=== PATIENT | female | born 1945 | race Caucasian/White ===

== ENCOUNTER 2017-08-08 09:13 | Outpatient (CLI) | payer MEDICARE, OTHER ==
--- NOTE | 2017-08-08 15:11 | CT ---
CT CHEST WITH IV CONTRAST: Date: 08/08/17 HISTORY: Pulmonary nodule follow-up. History of bladder cancer. COMPARISON: 05/17/17, 04/12/16. FINDINGS: The 7.0 mm noncalcified subpleural nodule in the inferior aspect of the right anterior upper lobe is stable. No new pulmonary nodules are seen. No mediastinal hilar or axillary mass or lymphadenopathy identified. No pleural or pericardial effus ions are seen. There are vascular calcifications without evidence of aneurysmal dilatation of the abdominal aorta. There are degenerative changes in the spine. The upper abdominal tomograms are unremarkable. IMPRESSION: Stable exam. POS: SIDNEY
== END 2017-08-08 09:14 | disposition home or self-care (01) ==
LOC: CT 09:13
PROVIDERS: ATTEND Family Medicine
DX: R91.1 Solitary pulmonary nodule (principal)
CPT/HCPCS: 71260

== ENCOUNTER 2017-08-08 10:45 | Emergency (ER) | payer MEDICARE, OTHER ==
[2017-08-08 11:21] LABS: #Basophils 0.1 thou/uL (0.0-0.2); #Eosinphils 0.6 thou/uL (0.0-0.7); #Lymphocytes 2.2 thou/uL (1.20-3.40); #Monocytes 0.4 thou/uL (0.11-0.59); %Basophils 0.7 % (0.0-1.0); %Lymphocytes 30.1 % (21.0-51.0); %Monocytes 5.1 % (0.0-10.0); Hematocrit 45.3 % (36.0-47.0); Mean Platelet Volume 7.4 fL (7.4-10.4); Red Blood Cell (RBC) Count 5.04 mill/uL (4.20-5.40); White Blood Cell (WBC) Count 7.2 thou/uL (4.8-10.8)
[2017-08-08 11:36] LABS: ALT (SGPT) 11 U/L (8-55); AST (SGOT) 14 U/L (5-34); Alkaline Phosphatase 82 U/L (40-150); Anion Gap 11 mmol/L (10-20); BUN (Urea Nitrogen) 12 mg/dL (9.8-20.1); Bilirubin, Total 0.6 mg/dL (0.2-1.2); Calc. Creatinine Clearance 0 mL/min (70-130); Calcium 9.7 mg/dL (7.8-10.44); Carbon Dioxide 26 mmol/L (23-31); Chloride 107 mmol/L (98-107); Estimated GFR-MDRD 72; Globulin 2.6 g/dL (2.4-3.5); Protein, Total 6.7 g/dL (6.0-8.3)
[2017-08-08 11:37] LABS: Bilirubin Negative (Negative); Blood, Urine Large (Negative); Glucose, Urine (Dipstick) Negative (Negative); Ketone, Urine Negative (Negative); Nitrite Positive (Negative); Protein, Urine (Dipstick) 30 mg/dL (Neg-Trace)
[2017-08-08 11:45] LABS: Bacteria/HPF 4+ HPF (None Seen); Hyaline Casts/LPF 0-3 HYALINE CAST LPF (0-3 Hyaline); RBC/HPF GREATER THAN 50-TNTC HPF (0-3); Squamous Epithelial 0-3 HPF (0-3)
== END 2017-08-08 13:09 | disposition home or self-care (01) ==
LOC: ERS 10:45
DX: N76.0 Acute vaginitis (principal); E78.5 Hyperlipidemia, unspecified; F17.210 Nicotine dependence, cigarettes, uncomplicated; Z85.3 Personal history of malignant neoplasm of breast; Z79.899 Other long term (current) drug therapy
CPT/HCPCS: 36415; 71260; 80053; 81003; 81015; 83690; 85025; 87077; 87086; 87186; 99284

== ENCOUNTER 2019-03-12 07:32 | Outpatient (CLI) | payer MEDICARE, OTHER ==
--- NOTE | 2019-03-12 08:42 | CT ---
CT chest noncontrast low-dose screening HISTORY: Tobacco abuse. Screening. COMPARISON: Multiple exams back to 04/12/2016. FINDINGS: Lungs remain somewhat hyperinflated. A noncalcified subpleural nodule at the anterior aspec t of the right upper lobe abutting the pleural surface is 0.7 cm greatest diameter on today's exam. Stable compared to 2017 studies. No new nodule. No pleural fluid or pneumothorax. Lack of contrast limits evaluation of the soft tissues.. No bulky mediastinal adenopathy. Calcificati on within the arterial structures. IMPRESSION: Stable right upper lobe nodule. Lung RADS category 2. Benign findings. Suggest routine sc reening. Atherosclerosis.
== END 2019-03-12 07:33 | disposition home or self-care (01) ==
LOC: CT 07:32
PROVIDERS: ATTEND Family Medicine
DX: F17.210 Nicotine dependence, cigarettes, uncomplicated (principal); R91.1 Solitary pulmonary nodule
CPT/HCPCS: G0297

== ENCOUNTER 2020-06-05 08:07 | Outpatient (CLI) | payer MEDICARE, OTHER ==
--- NOTE | 2020-06-05 09:29 | CT ---
CT PULMONARY LUNG SCAN: Date: 06/05/2020 HISTORY: Patient is a current smoker, having smoked for the past 50 years. COMPARISON: 03/12/2019 study. FINDINGS: There is a pleural based 7.0 mm anterior segment right upper lobe pulmonary nodule identified. This i s stable in appearance. No other nodules are seen. No significant mediastinal adenopathy. Coronary calcifications are noted. Visualized liver parenchyma shows no focal findings. IMPRESSION: 1. Lung-RADS Category 2 - Benign appearance or behavior. Stable pleural based right upper lobe 7.0 m m nodule. 2. Lung-RADS Category S - This category is given for the presence of coronary calcifications. 3. Overall stable exam as compared to the 03/12/2019 study. POS: MICHAEL
--- NOTE | 2020-06-05 10:15 | MRI ---
MRI BRAIN WITH AND WITHOUT IV CONTRAST: HISTORY: Transient neurological symptoms. COMPARISON: None CORRELATION: None FINDINGS: No restricted diffusion is seen. No evidence of infarct, hemorrhage, mass, midline shift or abnormal extra-axial fluid collections is noted. No abnormal postcontrast enhancement is seen. The ventricular size is appropriate and the basilar cisterns are patent.There is mucosal disease in the p aranasal sinuses. IMPRESSION: No evidence of acute intracranial process or mass.
[2020-06-05] MEDS ORDERED: Magnevist 469MG/ML 20 ML VIAL ONE (14:32)
== END 2020-06-05 08:08 | disposition home or self-care (01) ==
LOC: BICCT 08:07
PROVIDERS: ATTEND Family Medicine
DX: R91.1 Solitary pulmonary nodule (principal); R29.818 Other symptoms and signs involving the nervous system; F17.210 Nicotine dependence, cigarettes, uncomplicated; I25.10 Atherosclerotic heart disease of native coronary artery without angina pectoris
CPT/HCPCS: 70553; G0297; A9579

== ENCOUNTER 2021-05-20 07:55 | Outpatient (CLI) | payer MEDICARE, OTHER | END 2021-05-20 07:56 | disposition home or self-care (01) | LOC: BICCT 07:55 | PROVIDERS: ATTEND Family Medicine | DX: Z12.2 Encounter for screening for malignant neoplasm of respiratory organs (principal); F17.210 Nicotine dependence, cigarettes, uncomplicated; R91.1 Solitary pulmonary nodule; I70.90 Unspecified atherosclerosis; I70.8 Atherosclerosis of other arteries | CPT/HCPCS: 71271 ==

== ENCOUNTER 2021-07-10 07:31 | Outpatient (CLI) | payer MEDICARE | END 2021-07-10 07:32 | disposition home or self-care (01) | LOC: BICMAMMO 07:31 | PROVIDERS: ATTEND Family Medicine | DX: Z12.31 Encounter for screening mammogram for malignant neoplasm of breast (principal); Z13.820 Encounter for screening for osteoporosis; Z78.0 Asymptomatic menopausal state; Z80.3 Family history of malignant neoplasm of breast | CPT/HCPCS: 77063; 77067; 77080 ==

== ENCOUNTER 2022-07-05 10:59 | Outpatient (CLI) | payer MEDICARE ==
[2022-07-05] MEDS ORDERED: Iopamidol 370 76% 100 ML VIAL ONE (12:06)
== END 2022-07-05 11:00 | disposition home or self-care (01) ==
LOC: CT 10:59
PROVIDERS: ATTEND Family Medicine
DX: N32.89 Other specified disorders of bladder (principal); K57.30 Diverticulosis of large intestine without perforation or abscess without bleeding; K80.20 Calculus of gallbladder without cholecystitis without obstruction; Z90.710 Acquired absence of both cervix and uterus
CPT/HCPCS: 74178; 82565; Q9967

== ENCOUNTER 2022-08-05 09:56 | Outpatient (CLI) | payer MEDICARE | END 2022-08-05 09:57 | disposition home or self-care (01) | LOC: BICMAMMO 09:56 | PROVIDERS: ATTEND Family Medicine | DX: Z12.31 Encounter for screening mammogram for malignant neoplasm of breast (principal); Z80.3 Family history of malignant neoplasm of breast | CPT/HCPCS: 77063; 77067 ==

== ENCOUNTER 2023-08-23 08:03 | Outpatient (CLI) | payer MEDICARE | END 2023-08-23 08:04 | disposition home or self-care (01) | LOC: BICCT 08:03 | PROVIDERS: ATTEND Family Medicine | DX: Z12.31 Encounter for screening mammogram for malignant neoplasm of breast (principal); Z13.820 Encounter for screening for osteoporosis; Z12.2 Encounter for screening for malignant neoplasm of respiratory organs; R91.1 Solitary pulmonary nodule; Z78.0 Asymptomatic menopausal state; Z80.3 Family history of malignant neoplasm of breast; Z87.891 Personal history of nicotine dependence | CPT/HCPCS: 71271; 77063; 77067; 77080 ==

== ENCOUNTER 2024-02-17 08:26 | Outpatient (CLI) | payer MEDICARE | END 2024-02-17 08:27 | disposition home or self-care (01) | LOC: RAD 08:26 | PROVIDERS: ATTEND Nurse Practitioner Family | DX: R13.10 Dysphagia, unspecified (principal); R63.30 Feeding difficulties, unspecified | CPT/HCPCS: 74230 ==

== ENCOUNTER 2024-07-11 07:41 | Outpatient (CLI) | payer MEDICARE, OTHER ==
[2024-07-11] MEDS ORDERED: Iopamidol 370 76% 100 ML VIAL ONE (10:49)
== END 2024-07-11 07:42 | disposition home or self-care (01) ==
LOC: BICCT 07:41
PROVIDERS: ATTEND Internal Medicine Gastroenterology
DX: R10.32 Left lower quadrant pain (principal); R19.4 Change in bowel habit; K92.1 Melena; R13.14 Dysphagia, pharyngoesophageal phase; Z80.0 Family history of malignant neoplasm of digestive organs
CPT/HCPCS: 74177; Q9967

== ENCOUNTER 2024-09-05 07:30 | Outpatient (CLI) | payer MEDICARE | END 2024-09-05 07:31 | disposition home or self-care (01) | LOC: BICMAMMO 07:30 | PROVIDERS: ATTEND Family Medicine | DX: Z12.31 Encounter for screening mammogram for malignant neoplasm of breast (principal); Z12.2 Encounter for screening for malignant neoplasm of respiratory organs; R91.1 Solitary pulmonary nodule; J40 Bronchitis, not specified as acute or chronic; J18.0 Bronchopneumonia, unspecified organism; Z87.891 Personal history of nicotine dependence; Z80.3 Family history of malignant neoplasm of breast; Z91.89 Other specified personal risk factors, not elsewhere classified | CPT/HCPCS: 71271; 77063; 77067 ==

== ENCOUNTER 2025-09-09 08:26 | Outpatient (CLI) | payer MEDICARE | END 2025-09-09 08:27 | disposition home or self-care (01) | LOC: BICMAMMO 08:26 | PROVIDERS: ATTEND Family Medicine | DX: Z12.31 Encounter for screening mammogram for malignant neoplasm of breast (principal); Z78.0 Asymptomatic menopausal state; M85.851 Other specified disorders of bone density and structure, right thigh; Z80.3 Family history of malignant neoplasm of breast | CPT/HCPCS: 77063; 77067; 77080 ==